=== PATIENT | female | born 1985 | race Caucasian/White ===

== ENCOUNTER 2023-08-05 19:57 | Emergency (ER) | payer OTHER, SELFPAY ==
--- NOTE | ~2023-08-05 | XR_ITS ---
EXAM: XR knee LT 3V DATE: 08/05/2023 21:00 HISTORY: PAIN AFTER TWISTING LEFT KNEE TODAY . COMPARISON: None available. FINDINGS: Decreased mineralization. Small ossific fragment projecting over the tibial spine. No lyti c or blastic lesion. Joint spaces are maintained. No erosion or periosteal change. Soft tissues withi n normal limits. Small volume joint fluid. IMPRESSION: Small ossific fragment adjacent to the tibial spine, may represent an osteophyte or old fracture frag ment. Consider conservative management and nonemergent but timely MRI of the knee. Apparent decreased bone mineral density, greater than expected for age, may be related to radiographi c technique or osteopenia. Consider referral for bone density scanning. Reviewed, dictated and finalized at location [facility] IMPRESSION: Small ossific fragment adjacent to the tibial spine, may represent an osteophyt e or old fracture fragment. Consider conservative management and nonemergent bu t timely MRI of the knee. Apparent decreased bone mineral density, greater than expected for age, may be related to radiographic technique or osteopenia. Consider referral for bone den sity scanning.
[2023-08-05 20:03] VITALS: BP 117/75; PULSE 78; RESP 17; TEMP 36.8; O2SAT 99
--- NOTE | 2023-08-05 21:35 | ED.GENADULT ---
HPI - General Adult General Chief complaint: Extremity Injury, Lower Stated complaint: knee pain Time Seen by Provider: 08/05/23 21:10 History of Present Illness HPI narrative: 37-year-old female presenting to the emergency department for evaluation of left knee pain. Patient reports she was standing on 1 leg twisted and felt a pop in her left knee. Patient reports persistent pain since that time. Patient suspects that her patella had been displaced but is no longer displaced. Patient denies any prior history of fracture to that knee but does have a history of hiking with a ruck sac. Related Data Allergies Allergy/AdvReac Type Severity Reaction Status Date / Time No Known Allergies Allergy Verified 08/05/23 20:06 Review of Systems Review of Systems: All systems reviewed & are unremarkable except as noted in HPI and below Exam Narrative: APPEARANCE: Well appearing, no pain, no distress, well-nourished. HEAD: normocephalic, atraumatic. EYES: PERRLA/EOMI, conjunctivae clear. NOSE: Normal no drainage NECK: Supple. No adenopathy, no masses. RESPIRATORY: Airway patent, respirations nonlabored. Clear to auscultation bilaterally, no rales, rhonchi, wheezing. CARDIOVASCULAR: Regular rate and rhythm without murmurs rubs or gallops. ABDOMINAL: Soft, nontender, nondistended, normal bowel sounds MUSCULOSKELETAL: no significant left knee effusion or erythema, minimal tenderness to palpation no deformity NEURO: Alert. Cranial nerves II through XII intact. grossly intact SKIN: Warm, dry. Normal Color Course Course Emergency Course: 37-year-old female presents the emergency department for evaluation of left knee pain. X-rays showed osteophyte versus old injury. Patient was having persistent knee pain so she was provided crutches and a knee immobilizer and advised to have follow-up with her primary care physician for outpatient MRI. All questions and concerns were addressed patient was comfortable with plan for discharge and close follow-up. Vital Signs Vital signs: Vital Signs Temperature 98.2 F 08/05/23 20:03 Pulse Rate 78 08/05/23 20:03 Respiratory Rate 17 08/05/23 20:03 Blood Pressure 117/75 08/05/23 20:03 Pulse Oximetry 99 08/05/23 20:03 Oxygen Delivery Room Air 08/05/23 20:03 Temperature 98.2 F 08/05/23 20:03 Pulse Rate 78 08/05/23 20:03 Respiratory Rate 17 08/05/23 20:03 Blood Pressure 117/75 08/05/23 20:03 Pulse Oximetry 99 08/05/23 20:03 Oxygen Delivery Room Air 08/05/23 20:03 Medical Decision Making Differential Diagnosis Differential Diagnosis: patellar fracture, ligament injury, internal derangement of the left knee, dislocation Vital Signs Vital Signs: Vital Signs Temperature 98.2 F 08/05/23 20:03 Pulse Rate 78 08/05/23 20:03 Respiratory Rate 17 08/05/23 20:03 Blood Pressure 117/75 08/05/23 20:03 Pulse Oximetry 99 08/05/23 20:03 Oxygen Delivery Room Air 08/05/23 20:03 Temperature 98.2 F 08/05/23 20:03 Pulse Rate 78 08/05/23 20:03 Respiratory Rate 17 08/05/23 20:03 Blood Pressure 117/75 08/05/23 20:03 Pulse Oximetry 99 08/05/23 20:03 Oxygen Delivery Room Air 08/05/23 20:03 Imaging Data Radiologist's impression: Impressions Knee X-Ray 08/05/23 21:15 IMPRESSION: Small ossific fragment adjacent to the tibial spine, may represent an osteophyte or old fracture fragment. Consider conservative management and nonemergent but timely MRI of the knee. Apparent decreased bone mineral density, greater than expected for age, may be related to radiographic technique or osteopenia. Consider referral for bone density scanning. Discharge Plan Discharge Clinical Impression: Internal derangement of left knee Patient Disposition: Home, Self-Care Condition: Stable Instructions: Antibiotic Form, Crutch Instructions (ED), Knee Immobilizer (ED) Additional Instructions: Knee immobilize
== END 2023-08-05 21:52 | disposition home or self-care (01) ==
PROVIDERS: Emergency Provider Emergency Medicine; PCP Family Medicine
DX: M23.92 Unspecified internal derangement of left knee (principal); R93.6 Abnormal findings on diagnostic imaging of limbs
CPT/HCPCS: 73562; 99283